=== PATIENT | male | born 1990 | race African-American/Black ===

== ENCOUNTER 2022-02-18 04:26 | Emergency (ER) | payer OTHER, BC, SELFPAY ==
--- NOTE | ~2022-02-18 | XR_ITS ---
EXAMINATION: XR forearm RT 2V, XR wrist RT min 3V DATE: 02/18/2022 05:50 INDICATION: Right wrist and forearm pain and swelling post trauma TECHNIQUE: 1. AP an lateral views of the right forearm were obtained. 2. PA, lateral, oblique and navicular views of the right wrist were obtained. COMPARISON: none FINDINGS: Alignment is normal. No fracture. Joint spaces are normal. No joint effusion. Soft tissues are unrema rkable. IMPRESSION: 1. Negative right wrist and forearm radiographs. Reviewed, dictated and finalized at location A. IMPRESSION: 1. Negative right wrist and forearm radiographs.
--- NOTE | ~2022-02-18 | XR_ITS ---
EXAMINATION: XR shoulder RT min 2V DATE: 02/18/2022 05:50 INDICATION: Right shoulder pain and swelling after being hit with a forklift TECHNIQUE: AP internally and externally rotated, AP oblique externally rotated and transscapular Y vi ews of the right shoulder were obtained. COMPARISON: None FINDINGS: Normal alignment. No fracture. Glenohumeral joint is normal. Acromioclavicular joint is normal. Soft tissues are unremarkable. Visualized portions of the lungs are clear. IMPRESSION: Negative right shoulder radiographs. Reviewed, dictated and finalized at location A.
[2022-02-18 04:28] VITALS: BP 134/80; PULSE 74; RESP 18; TEMP 36.4; O2SAT 100
--- NOTE | 2022-02-18 04:49 | ED.GENADULT ---
HPI - General Adult General Chief complaint: Extremity Injury, Upper Stated complaint: rt shoulder and arm pain after injury Time Seen by Provider: 02/18/22 04:40 Source: RN notes reviewed History of Present Illness HPI narrative: Patient presents emergency department for right arm pain. Patient states he was at work this evening at [employer] he states that he works on a [employer] and another coworker had fallen asleep on the floor. He states he got over to wake them up and when they awoke they were startled and fork to turn and head hit his right arm. He states since that time has had pain in his right shoulder as well as in his right forearm and wrist he denies any other trauma or injury he states he has been applying ice pack to the area does not take any pain medication. He states that following the accident he did have some tingling in his fourth and fifth digits that are improved he notes no weakness in the Related Data Allergies Allergy/AdvReac Type Severity Reaction Status Date / Time No Known Allergies Allergy Verified 02/18/22 04:40 Review of Systems Review of Systems: Gen.: Denies fevers or chills Musculoskeletal: See HPI Neuro: Reports initial numbness and tingling in fourth and fifth digits on right denies weakness Skin: Denies rash Endo: Denies DM PMFSH Past Medical History Medical History (Updated 02/18/22 @ 05:57 by Brad Garza DO) Patient denies significant medical history Social History Social History (Updated 02/18/22 @ 04:50 by Brad Garza DO) Smoking status: Never smoker Exam Narrative: APPEARANCE: No acute distress, nontoxic, resting in bed Eyes: EOMI HEENT: Normocephalic, atraumatic, RESPIRATORY: No respiratory distress MUSCULOSKELETAl: Tender to palpation in the right anterior lateral shoulder no swelling ecchymosis full range of motion of the right shoulder without pain, no tenderness of the right medial lateral or posterior elbow full range of motion of the elbow without pain tender palpation of the right palmar forearm mild swelling no ecchymosis compartments are soft mild tenderness of the right dorsal wrist full flexion-extension of the wrist without pain full flexion extension of all 5 MCP and IP joints, radial pulse 2+ neurovascular intact, two-point tactile discrimination down to 5 mm in all 5 digits NEURO: Awake and alert. Following commands, speech normal, no focal deficits SKIN:: Warm, dry. Normal Color no rash or lesions Course Course Emergency Course: Discussed with patient results of workup and diagnosis. Discussed need for follow-up with primary care, proper use of medication, and reasons to return to the emergency department. Patient understands and agrees to current treatment plan Vital Signs Vital signs: Vital Signs Temperature 97.5 F L 02/18/22 04:28 Pulse Rate 74 02/18/22 04:28 Respiratory Rate 18 02/18/22 04:28 Blood Pressure 134/80 02/18/22 04:28 Pulse Oximetry 100 02/18/22 04:28 Oxygen Delivery Room Air 02/18/22 04:28 Temperature 97.5 F L 02/18/22 04:28 Pulse Rate 74 02/18/22 04:28 Respiratory Rate 18 02/18/22 04:28 Blood Pressure 134/80 02/18/22 04:28 Pulse Oximetry 100 02/18/22 04:28 Oxygen Delivery Room Air 02/18/22 04:28 Medical Decision Making Vital Signs Vital Signs: Vital Signs Temperature 97.5 F L 02/18/22 04:28 Pulse Rate 74 02/18/22 04:28 Respiratory Rate 18 02/18/22 04:28 Blood Pressure 134/80 02/18/22 04:28 Pulse Oximetry 100 02/18/22 04:28 Oxygen Delivery Room Air 02/18/22 04:28 Temperature 97.5 F L 02/18/22 04:28 Pulse Rate 74 02/18/22 04:28 Respiratory Rate 18 02/18/22 04:28 Blood Pressure 134/80 02/18/22 04:28 Pulse Oximetry 100 02/18/22 04:28 Oxygen Delivery Room Air 02/18/22 04:28 Imaging Data Radiologist's impression: All x-rays reviewed by myself Right forearm no acute process Right shoulder no acute process Right wr
[2022-02-18] MEDS: IBUPROFEN 600 MG TABLET PO (05:12)
[2022-02-18 06:37] VITALS: BP 120/78; PULSE 82; RESP 16; O2SAT 98
== END 2022-02-18 06:40 | disposition home or self-care (01) ==
PROVIDERS: Emergency Provider Emergency Medicine
DX: S40.021A Contusion of right upper arm, initial encounter (principal); W24.0XXA Contact with lifting devices, not elsewhere classified, initial encounter
CPT/HCPCS: 73030; 73090; 73110; 99284; A9270